=== PATIENT | male | born 1970 | race Hispanic/Latino ===

== ENCOUNTER → 2024-02-25 | Outpatient (CLI) | payer OTHER, MEDICARE ==
[~2024-02-25] MED LIST: ASPI-1197 PO; CHOL100044 PO; LACO100T2 PO; LACO150T2 PO; LEVE100S7 PO; ROSU10TA22 PO
[2024-02-25 10:12] LABS: CREATININE 0.8 mg/dL (0.5-1.3)
== END | disposition home or self-care (01) ==
LOC: LAB 09:23
PROVIDERS: ATTEND Internal Medicine Gastroenterology
DX: R63.4 Abnormal weight loss (principal)
CPT/HCPCS: 36415; 82565; 84520

== ENCOUNTER → 2024-02-28 | Outpatient (CLI) | payer OTHER, MEDICARE ==
[~2024-02-28] MED LIST changes: +IOHEXOL-350 75 ML VIAL IV ONE
== END | disposition home or self-care (01) ==
LOC: RAH 10:28
PROVIDERS: ATTEND Internal Medicine Gastroenterology
DX: N32.89 Other specified disorders of bladder (principal); R63.4 Abnormal weight loss; M47.815 Spondylosis without myelopathy or radiculopathy, thoracolumbar region; I70.90 Unspecified atherosclerosis
CPT/HCPCS: 74177; Q9967